=== PATIENT | male | born 1930 | race Caucasian/White ===

== ENCOUNTER 2018-05-18 14:54 | Emergency (ER) | payer OTHER, MEDICAID ==
[~2018-05-18] VITALS: Ht 172.7 cm; Wt 66.2 kg
--- NOTE | 2018-05-18 15:15 | NUR ---
patient presented to the ER michael, c/o sob, albuterol given on seen. connected to the monitor and 02. denies any pain at this time. kept comfortable. will continue to monitor accordingly.
[2018-05-18] MEDS ORDERED: ALBUTEROL FS 2.5 MG/3 ML VIAL.NEB ONE ×2 (15:19→18:05)
[2018-05-18] MEDS ORDERED: methylPREDNISolone SOD SUCC 125 MG/2ML VIAL ONE (15:20)
[2018-05-18] MEDS: ALBUTEROL FS 2.5 MG/3 ML VIAL.NEB NEB ONE ×2 (15:22→18:08)
[2018-05-18] MEDS: methylPREDNISolone SOD SUCC 125 MG/2ML VIAL IV ONE (15:24)
[2018-05-18 15:30] LABS: BASOPHILS # (AUTO) 0.1 /CMM (0.0-0.2); MONOCYTES # (AUTO) 0.6 /CMM (0.1-1.30)
[2018-05-18 15:34] LABS: BASOPHILS % (AUTO) 0.8 % (0.0-2.0); EOSINOPHILS % (AUTO) 0.2 % (0.0-6.0); HEMATOCRIT 26 % (39-51); HEMOGLOBIN 7.6 g/dL (13.5-17.5); LYMPHOCYTES # (AUTO) 1.6 /CMM (0.8-4.8); LYMPHOCYTES % (AUTO) 12.7 % (20.0-44.0); MEAN CORPUSCULAR HGB CONC 29 g/dl (31.0-36.0); MEAN CORPUSCULAR VOLUME 67 fL (80-96); MONOCYTES % (AUTO) 4.7 % (2.0-12.0); NEUTROPHILS # (AUTO) 10.1 /CMM (1.8-8.9); NEUTROPHILS % (AUTO) 81.6 % (43.0-81.0); PLATELET COUNT (AUTO) 383 /CMM (150-450); RED BLOOD CELL COUNT(AUTO) 3.96 MIL/uL (4.5-6.0); WHITE BLOOD COUNT (AUTO) 12.4 K/uL (4.3-11.0)
[2018-05-18 15:39] LABS: CALCIUM, SERUM 8.9 mg/dL (8.5-10.1); CARBON DIOXIDE 27 mmol/L (21-32); CHLORIDE 104 mmol/L (98-107); CREATININE 0.9 mg/dL (0.6-1.3); GLUCOSE 112 mg/dL (74-106); POTASSIUM 4.6 mmol/L (3.5-5.1); SODIUM SERUM 140 mmol/L (136-145); UREA NITROGEN, BLOOD 31 mg/dL (7-18)
[2018-05-18 15:51] LABS: ALANINE AMINOTRANSFERASE 15 U/L (12-78); ALBUMIN 3.3 g/dL (3.4-5.0); ALKALINE PHOSPHATASE 54 U/L (46-116); ASPARTATE AMINOTRANSFERASE 16 U/L (15-37); B-TYPE NATRIURETIC PEPTIDE 5530 PG/ML (0-125); BILIRUBIN,DIRECT 0.1 mg/dL (0.0-0.2); BILIRUBIN,TOTAL 0.4 mg/dL (0.2-1.0); TOTAL PROTEIN, SERUM 7.2 g/dL (6.4-8.2)
[2018-05-18 16:22] LABS: ABG BASE EXCESS -1.6 mmol/L; ABG OXYGEN SATURATION 96.2 % (92.0-98.5); ABG PCO2 38.5 mmHg (35.0-45.0); ABG PH 7.395 (7.350-7.450); ABG PO2 92.4 mmHg (75.0-100.0); AaDO2 76.3 mmHg; COHb 1.8 % (0.5-1.5); MetHb 0.4 % (0.0-1.5); O2Hb 94.1 % (94.0-97.0); SITE, ABG Left Radial; VENT MODE, BG 3 L NC
[2018-05-18 16:30] LABS: LYMPHOCYTES % (MANUAL) 8 % (16-48); MONOCYTES % (MANUAL) 4 % (0-11.0); NEUTROPHILS % (MANUAL) 88 (42-76)
--- NOTE | 2018-05-18 18:11 | NUR ---
GOT CALL FROM [facility] ACCEPTING MD IS BARBARA DEUTSCH REPORT TO [phone] [facility] WILL TRANSPORT ETA IS [phone]
--- NOTE | 2018-05-18 18:23 | NUR ---
REPORT GIVEN TO TRISHA FROM [place] FOR [facility].
[2018-05-18 19:24] VITALS: BP 114/72
--- NOTE | 2018-05-18 19:26 | NUR ---
transferred patient to [facility] via [facility] accompanied by 2 emt's, in no apparent distress noted.
== END 2018-05-18 19:26 | disposition short-term general hospital (02) ==
LOC: ER 14:54
DX: I50.9 Heart failure, unspecified (principal); J44.1 Chronic obstructive pulmonary disease with (acute) exacerbation; F03.90 Unspecified dementia, unspecified severity, without behavioral disturbance, psychotic disturbance, mood disturbance, and anxiety; R00.0 Tachycardia, unspecified; Z99.81 Dependence on supplemental oxygen; Z87.891 Personal history of nicotine dependence
CPT/HCPCS: 36415; 36600; 71045-TC; 80048-TC; 80076-TC; 82803-TC; 83880; 84484-TC; 85025-TC; 85730-TC; 87400; J2930